=== PATIENT | male | born 1940 | race Caucasian/White ===

== ENCOUNTER → 2018-04-06 11:04 | Outpatient (CLI) | payer MEDICARE, SELFPAY ==
--- NOTE | 2018-04-06 11:22 | XR_ITS ---
XR chest 2V HISTORY: ITS.REASON: FEBRILE ILLNESS ORDERING PHYSICIAN: Vin Bradshaw PATIENT AGE: 77 years COMPARISON: 08/19/2016 FINDINGS: There has been a prior CABG. Coronary artery stent is also present. Normal heart size. No evidence of CHF. Right hemidiaphragm is slightly elevated. Lungs are clear of acute infiltrate. Degenerative changes are present in the thoracic spine. IMPRESSION: Prior CABG. No change with no acute finding
== END ==
PROVIDERS: Visit Provider Internal Medicine
DX: R50.9 Fever, unspecified (principal); J11.1 Influenza due to unidentified influenza virus with other respiratory manifestations
CPT/HCPCS: 71046; 87275; 87276

== ENCOUNTER → 2018-04-20 10:43 | Outpatient (CLI) | payer MEDICARE, SELFPAY ==
--- NOTE | 2018-04-20 10:52 | XR_ITS ---
EXAM: XR cervical spine 5V HISTORY: Neck pain ITS.REASON: NECK SHOULDER RT ARM RT CHEST PAIN ORDERING PHYSICIAN: Vin Bradshaw PATIENT AGE: 77 years COMPARISON: None FINDINGS: Degenerative disc disease is present at from C3 to C7 worse at C5-C6 and C6-C7 with endplate osteophytes. There is mild anterior subluxation of C4 on C5 of 3 mm. Facet and uncovertebral arthropathy is present with Foraminal narrowing is present on the right at C3-C4 C4-C5 and C5-C6 and on the left at C3-C4 C4-C5 and C5-C6 and C6-C7. No fracture or dislocation. No lytic or blastic change. Prominent facet arthritic changes are present from C3 to C7 incidental carotid artery calcifications noted bilaterally. IMPRESSION: 1. Cervical spondylosis with degenerative disc disease and facet and uncovertebral arthrosis with foraminal narrowing as described above 2. Carotid artery disease
--- NOTE | 2018-04-20 10:52 | XR_ITS ---
XR shoulder RT min 2V HISTORY: Right shoulder pain ITS.REASON: NECK SHOULDER RT ARM RT CHEST PAIN ORDERING PHYSICIAN: Vin Bradshaw PATIENT AGE: 77 years Comparison: None FINDINGS: No obvious fracture, dislocation, lytic, or blastic change. There is mild acromioclavicular arthropathy with subacromial stenosis. There is decrease in the acromiohumeral space with mild superior location of the humeral head. These findings may be seen with rotator cuff tears may be confirmed with MRI if clinically warranted. IMPRESSION: 1. Mild acromioclavicular arthropathy with subacromial stenosis with possible rotator cuff tear. 2. Otherwise negative right shoulder
--- NOTE | 2018-04-20 10:52 | XR_ITS ---
XR chest 2V HISTORY: ITS.REASON: NECK SHOULDER RT ARM RT CHEST PAIN ORDERING PHYSICIAN: Vin Bradshaw PATIENT AGE: 77 years COMPARISON: 04/06/2018 FINDINGS: Prior CABG. Normal heart size. No evidence of CHF. Lungs are clear bilaterally. Degenerative changes are present in the thoracic spine. IMPRESSION: No change with no acute finding
== END ==
PROVIDERS: PCP Internal Medicine; Visit Provider Internal Medicine
DX: M54.2 Cervicalgia (principal); M25.511 Pain in right shoulder; R07.89 Other chest pain; M79.641 Pain in right hand
CPT/HCPCS: 71046; 72050; 73030

== ENCOUNTER → 2019-02-09 06:50 | Outpatient (CLI) | payer MEDICARE, SELFPAY ==
--- NOTE | 2019-02-09 06:53 | CA_ITS ---
PROCEDURE: 2-D M-mode and color Doppler study INDICATIONS FOR THE TEST: Chest pain COPD Heart Murmur Tobacco Smoking Palpitations Fatigue+ Syncope+ Edema Hypertension+Diabetes Mellitus+ Rheumatic Fever SOB+REYNOLDS Obesity Hyperlipidemia+ Family History HD Additional History DIZZINESS, CABG, STENT PATIENT INFORMATION HEIGHT: 68 WEIGHT:194 GENDER: Male B/P:127/70 2-D/M-MODE INTERPRETATION: 2-D MEASUREMENTS OBSERVED VALUES IN CMS Right Ventricular Dimension (RVDd) 2.3 Interventricular Septum (Thickness)(IVsd) 1.5 Left Ventricular Internal Dimensions(LVIDd) 5.8 Left Ventricular Posterior Wall (Thickness)(LVPWd) 0.7 Aortic Root 3.8 Aortic Cusp Separation 2.0 Left Atrial Dimensions (LAD) 4.1 2D 1. Left atrium is mildly enlarged, left ventricle is normal size, mild concentric left ventricular hypertrophy, visually estimated ejection fraction 55% with no regional wall motion abnormality. 2. The right atrium and right ventricle are normal size and contractility. 3. The aortic valve is minimally thickened and fibrosed leaflet continue to display good mobility. 4. The mitral and tricuspid valve are grossly normal. 5. The pulmonic valve is poorly visualized. 6. No significant pericardial effusion noted. DOPPLER INTERROGATION: Doppler interrogation of the aortic, mitral and tricuspid valvular presence of mild mitral and tricuspid regurgitation, tricuspid regurgitation jet velocity is inadequate for calculation of the right ventricular systolic pressure, grade 1 diastolic dysfunction seen with tissue Doppler evidence of raised left atrial pressure. CONCLUSION: 1. Mildly enlarged left atrium, normal left ventricular size, mild concentric left ventricular hypertrophy, visually estimated ejection fraction 55% with no regional wall motion abnormality, grade 1 diastolic dysfunction seen with tissue Doppler evidence of raised left atrial pressure. 2. Mild mitral and tricuspid regurgitation 3. No significant pericardial effusion noted.
--- NOTE | 2019-02-09 06:58 | NM_ITS ---
CARDIOLITE SPECT MYOCARDIAL PERFUSION LEXISCAN, REST AND STRESS: [facility] REVIEW QGS EF AND WALL MOTION EVALUATION: QPS - PERFUSION EVALUATION HISTORY: CAD, SYNCOPE DOSE: 10.56 mCi technetium 99m mibi intravenously at rest followed by 31.9 mCi technetium 99m mibi following the intravenous ministration of 0.4 mg of Lexiscan. Resting blood pressure is 111/54. Stress blood pressure 98/52. FINDINGS: Ejection fraction is calculated to be 42% Stress images reveal severe left ventricular dilatation with severely reduced activity in the inferior wall moderately reduced in the anterior apical wall. Rest images reveal worsening activity in the septum and apex with persistent decrease activity in the inferior wall. Gated images calculated ejection fraction of 42% inferior wall aneurysm and akinesis with anterior apical hypokinesis. High risk stress test. IMPRESSION:
--- NOTE | 2019-02-09 06:58 | XR_ITS ---
XR chest 2V HISTORY: No history provided ITS.REASON: z ORDERING PHYSICIAN: Hans Odell MD PATIENT AGE: 78 years COMPARISON: PA and lateral chest 04/20/2018 FINDINGS: The cardiomediastinal silhouette and pulmonary vascularity are within normal limits. Sternal wire sutures and surgical clips are seen from previous CABG. The lungs are clear without infiltrates, suspicious nodules, or pleural effusions. No acute bony abnormalities. There are mild multilevel degenerative changes thoracic spine. IMPRESSION: Negative chest, no acute finding
--- NOTE | 2019-02-09 08:55 | HMH.ITSHM ---
Current Home Medications as stated by this patient Victoria Sears or ambulatory service representative. []OMEPRAZOLE METOPROLOL INSULIN GABAPENTIN FUROSEMIDE DIAZEPAM CITALOPRAM ATORVASTATIN PLAVIX ASPIRIN
[2019-02-09 10:37] LABS: Microscopic, Urine URINE MICROSCOPIC (MICROSCOPIC)
[2019-02-09 11:07] LABS: Basophils % 0.5 % (0.1-2.0); Eosinophils # 0.5 K/mm3 (0.0-0.4); Eosinophils % 8.2 % (0.1-12.0); Hematocrit 41.4 % (42.0-52.0); Lymphocytes # 1.3 K/mm3 (0.7-4.5); Lymphocytes % 20.2 % (10-50); Mean Corpuscular HGB Conc 33.8 g/dL (31.8-35.4); Mean Corpuscular Hemoglobin 29.2 pg (27.0-31.2); Mean Corpuscular Volume 86.5 fl (80-94); Mean Platelet Volume 7.5 fl (7.4-10.4); Monocytes # 0.4 K/mm3 (0.1-1.0); Monocytes % 5.6 % (1.7-9.3); Neutrophils # 4.3 K/mm3 (1.8-7.8); Neutrophils % 65.6 % (37.0-80.0); Platelet Count 161 K/mm3 (142-424); Red Blood Count 4.78 M/mm3 (4.60-6.20); Red Cell Distribution Width 14.5 % (11.5-17.5); White Blood Count 6.6 K/mm3 (4.8-10.8)
[2019-02-09 11:23] LABS: Appearance,Urine CLEAR (Clear); Bilirubin,Urine Negative (Negative); Blood, Urine Negative (Negative); Color,Urine YELLOW (Yellow); Glucose,Urine (UA) Negative (Negative); Ketones,Urine Negative (Negative); Leukocyte Esterase,Urine Negative (Negative); Nitrate,Urine Negative (Negative); Protein,Urine Negative (Negative); Specific Gravity, Urine 1.015 (1.005-1.030); Urobilinogen,Urine 0.2 EU/dl (0.2)
[2019-02-09 11:34] LABS: Bacteria,Urine Trace /lpf; Squamous Epithelial Cell,Urine Occasional #/hpf (0-5); WBC,Urine Occasional #/hpf (0-3)
[2019-02-09 11:48] LABS: Alanine Aminotransferase 22 U/L (12-78); Albumin Level 4.2 gm/dL (3.4-5.0); Alkaline Phosphatase 69 U/L (46-116); Anion Gap 15.7 mEq/L (5-15); Aspartate Amino Transferase 14 U/L (15-37); Bilirubin,Direct 0.1 mg/dL (0.0-0.2); Bilirubin,Indirect 0.4 mg/dL (0.0-0.9); Bilirubin,Total 0.5 mg/dL (0.2-1.0); Blood Urea Nitrogen 21 mg/dL (7-18); Calcium 9.5 mg/dL (8.5-10.1); Carbon Dioxide 25 mmol/L (21.0-32.0); Chloride 104 mmol/L (98-107); Creatinine,Serum 1.13 mg/dL (0.70-1.30); Estimated Glomerular Filt Rate 63 ml/min (>60); Free T4 (Free Thyroxine) 0.84 ng/dl (0.76-1.46); GFR (African American) 76 ML/MIN (>60); Glucose 158 mg/dL (74-106); Potassium 4.7 mmoL/L (3.5-5.1); Prostate Specific Ag, Diagnost 1.12 ng/mL (0.0-4.0); Sodium 140 mmol/L (136-145); Thyroid Stimulating Hormone 3.98 uIU/ml (0.358-3.740); Total Protein,Serum 7.6 gm/dL (6.4-8.2)
== END ==
PROVIDERS: PCP Internal Medicine; Visit Provider Internal Medicine
DX: R55 Syncope and collapse (principal); R07.9 Chest pain, unspecified; E78.5 Hyperlipidemia, unspecified; I11.9 Hypertensive heart disease without heart failure; I25.10 Atherosclerotic heart disease of native coronary artery without angina pectoris; I44.0 Atrioventricular block, first degree; R06.02 Shortness of breath; R42 Dizziness and giddiness; R53.83 Other fatigue; N40.0 Benign prostatic hyperplasia without lower urinary tract symptoms; R39.198 Other difficulties with micturition
CPT/HCPCS: 36415; 71046; 78452; 80048; 80076; 81001; 84153; 84439; 84443; 85025; 93017; 93306; A9502; J2785

== ENCOUNTER → 2019-02-25 11:06 | Outpatient (CLI) | payer MEDICARE, SELFPAY ==
--- NOTE | 2019-02-25 11:07 | CI_ITS ---
Cerebrovascular Exam Indications: 780.2 Syncope and collapse. 785.9 Bruit. 780.4 Dizziness and giddiness. IMPRESSIONS 1. The bilateral vertebral arteries are patent with normal antegrade flow. 2. Study suggests 20-49% stenosis involving the right internal carotid artery. 3. Study suggests 20-49% stenosis involving the left internal carotid artery. History: Coronary artery disease. Risk factors: Former smoker Hypertension. Diabetes mellitus. Hyperlipidemia. Carotid duplex study. Complete study and Doppler flow study including spectral analysis, color and muñoz scale imaging. Height: Height: 175.3cm. Height: 69in. Weight: Weight: 86.6kg. Weight: 190.6lb. Body mass index: BMI: 28.2kg/m^2. Body surface area: BSA: 2.07m^2. Location: Vascular laboratory. Patient status: Outpatient. Tables: Arterial flow: + +--------+--------+ Location V sys V ed + +--------+--------+ Right CCA - proximal 80.9cm/s 16.5cm/s + +--------+--------+ Right CCA - distal 80.2cm/s 12.7cm/s + +--------+--------+ Right ECA 62.8cm/s 9.4cm/s + +--------+--------+ Right ICA - proximal 71.5cm/s 19.4cm/s + +--------+--------+ Right ICA - distal 75.7cm/s 25.2cm/s + +--------+--------+ Right vertebral 31.4cm/s 8.7cm/s + +--------+--------+ Left CCA - proximal 71.5cm/s 17.4cm/s + +--------+--------+ Left CCA - mid 76.9cm/s 16cm/s + +--------+--------+ Left CCA - distal 63.5cm/s 18cm/s + +--------+--------+ Left ECA 85.7cm/s 13.3cm/s + +--------+--------+ Left ICA - proximal 59.5cm/s 14.7cm/s + +--------+--------+ Left ICA - mid 52.4cm/s 20.2cm/s + +--------+--------+ Left ICA - distal 63.9cm/s 23.5cm/s + +--------+--------+ Left vertebral 57.6cm/s 11.2cm/s + +--------+--------+ Velocity ratios: + + + + + + Right, V sys Right, V ed Left, V sys Left, V ed + + + + + + Max ICA/dist CCA 0.94 1.98 1.01 1.31 + + + + + + (Report amended ) Electronically signed by: Justin Alarcon [id number]
== END ==
PROVIDERS: PCP Internal Medicine; Visit Provider Nurse Practitioner Family
DX: E78.2 Mixed hyperlipidemia (principal); I11.9 Hypertensive heart disease without heart failure; I25.118 Atherosclerotic heart disease of native coronary artery with other forms of angina pectoris; I44.0 Atrioventricular block, first degree; R06.02 Shortness of breath; R09.89 Other specified symptoms and signs involving the circulatory and respiratory systems; R42 Dizziness and giddiness; R53.83 Other fatigue; R55 Syncope and collapse
CPT/HCPCS: 93880

== ENCOUNTER → 2019-09-13 08:27 | Outpatient (CLI) | payer MEDICARE, SELFPAY ==
--- NOTE | 2019-09-13 08:28 | FL_ITS ---
PROCEDURE: FL BARIUM ENEMA CLINICAL INDICATION: colon The polyps, tortuous colon on recent colonoscopy COMPARISON: No exams were available for comparison FINDINGS: Fluoroscopy time: 2 minutes and 46 seconds Left nephrolithiasis is noted with the largest stone in the lower pole at 9 mm. The colon was visualized from rectum to cecum. The appendix did fill. There is extensive diverticulosis of the descending and sigmoid colon. No annular constricting lesions or fixed polypoid filling defects are evident. No evidence of diverticulitis. No mucosal abnormalities are apparent. IMPRESSION: 1. Colonic diverticulosis. 2. Otherwise negative air-contrast barium enema 3. Left nephrolithiasis Dictated by: Armando Chavez MD 09/13/2019 16:07 Electronically signed by Armando Chavez MD in [place] 09/14/2019 10:03
== END ==
PROVIDERS: PCP Internal Medicine; Visit Provider Surgery
DX: D12.6 Benign neoplasm of colon, unspecified (principal)
CPT/HCPCS: 74270

== ENCOUNTER → 2019-11-16 13:52 | Outpatient (POV) | payer MEDICARE, SELFPAY | DX: Z00.00 Encounter for general adult medical examination without abnormal findings (principal) ==

== ENCOUNTER → 2019-12-09 11:34 | Outpatient (CLI) | payer MEDICARE, SELFPAY ==
--- NOTE | 2019-12-09 11:52 | ECG_ITS ---
APPROVED REPORT Exam: Resting ECG HR:56 bpm ECG Measurements Heart Rate 56 AXES WV 166 P 68 QRSd 104 QRS 98 QT 430 T -4 QTc 414 <Conclusion> Sinus bradycardia Rightward axis Nonspecific T wave abnormality Abnormal ECG Electronically signed by : Vin Bradshaw, 12/09/2019 15:49:05
== END ==
PROVIDERS: PCP Internal Medicine; Visit Provider Internal Medicine
DX: Z01.810 Encounter for preprocedural cardiovascular examination (principal); E11.59 Type 2 diabetes mellitus with other circulatory complications
CPT/HCPCS: 93005

== ENCOUNTER → 2020-01-04 14:07 | Outpatient (POV) | payer MEDICARE, SELFPAY | DX: Z00.00 Encounter for general adult medical examination without abnormal findings (principal) ==

== ENCOUNTER → 2020-01-09 10:58 | Outpatient (CLI) | payer MEDICARE, SELFPAY ==
--- NOTE | 2020-01-09 11:12 | XR_ITS ---
PROCEDURE: XR SHOULDER RT MIN 2V CLINICAL INDICATION: RT SHOULDER BURSITIS Right shoulder pain COMPARISON: SHOULDCMRT XR shoulder RT min 2V from 04/20/2018 FINDINGS: There are mild osteoarthritic changes of the AC joint and glenohumeral joint with subacromial stenosis. There is mild high-riding of the humeral head which may be seen with rotator cuff tear is. Overall no significant change from 04/20/2018. IMPRESSION: Osteoarthritic change with subacromial stenosis which may be seen with rotator cuff tears Dictated by: Armando Chavez MD 01/09/2020 11:26 Electronically signed by Armando Chavez MD in [place] 01/09/2020 11:26
== END ==
PROVIDERS: PCP Internal Medicine; Visit Provider Internal Medicine
DX: M75.51 Bursitis of right shoulder (principal)
CPT/HCPCS: 73030

== ENCOUNTER → 2020-02-01 14:08 | Outpatient (POV) | payer MEDICARE, SELFPAY | DX: Z00.00 Encounter for general adult medical examination without abnormal findings (principal) ==

== ENCOUNTER → 2020-02-15 14:00 | Outpatient (POV) | payer MEDICARE, SELFPAY | PROVIDERS: PCP Internal Medicine | DX: Z00.00 Encounter for general adult medical examination without abnormal findings (principal) ==

== ENCOUNTER → 2020-04-30 10:22 | Outpatient (CLI) | payer MEDICARE, SELFPAY ==
--- NOTE | 2020-04-30 10:31 | XR_ITS ---
PROCEDURE: XR CERVICAL SPINE 5V CLINICAL INDICATION: CERVICALGIA COMPARISON: [id number] XR cervical spine 5V from 04/20/2018 FINDINGS: There is grade 1 posterior listhesis at the C3-4 disc space again demonstrated. There is degenerative narrowing of the C3-C4, C5-C6, in the C6-C7 disc spaces. Multilevel facet arthropathy and bilateral neural foraminal stenosis of C3 through C7 is demonstrated. Vascular calcifications are present. There is no fracture or dislocation. IMPRESSION: Degenerative spondylosis, no fractures Note: If a subtle fracture is suspected then CT scan recommended. Dictated by: Junaid Murry 04/30/2020 10:57 Electronically signed by Junaid Murry in [place] 04/30/2020 10:57
[2020-04-30 13:38] LABS: Erythrocyte Sedimentation Rate 17 mm/hr (0-20)
== END ==
PROVIDERS: PCP Internal Medicine; Visit Provider Internal Medicine
DX: M54.2 Cervicalgia (principal)
CPT/HCPCS: 36415; 72050; 85651

== ENCOUNTER → 2020-07-11 11:06 | Outpatient (CLI) | payer MEDICARE, SELFPAY ==
--- NOTE | 2020-07-11 11:12 | XR_ITS ---
PROCEDURE: XR CHEST 2V CLINICAL HISTORY: CHEST PAIN,COPD COMPARISON: CR CXR2V XR chest 2V from 02/09/2019 FINDINGS: Prior CABG. Normal heart size. Coronary artery stent noted. The lungs are clear without infiltrates, suspicious nodules, or pleural effusions. Degenerative change thoracic spine IMPRESSION: No acute findings. Dictated by: Armando Chavez MD 07/11/2020 11:33 Armando Chavez MD in [place] 07/11/2020 11:33
--- NOTE | 2020-07-11 11:38 | ECG_ITS ---
APPROVED REPORT Exam: Resting ECG HR:60 bpm ECG Measurements Heart Rate 60 AXES OK 174 P 53 QRSd 108 QRS 62 QT 428 T 40 QTc 428 <Conclusion> Normal sinus rhythm Normal ECG Electronically signed by : Vin Bradshaw, 07/11/2020 11:57:10
== END ==
PROVIDERS: PCP Internal Medicine; Visit Provider Internal Medicine
DX: R07.9 Chest pain, unspecified (principal); J44.9 Chronic obstructive pulmonary disease, unspecified
CPT/HCPCS: 71046; 93005

== ENCOUNTER → 2021-04-05 10:35 | Outpatient (CLI) | payer MEDICARE, MEDICAID, SELFPAY ==
--- NOTE | 2021-04-05 10:41 | XR_ITS ---
PROCEDURE: XR SHOULDER RT MIN 2V CLINICAL INDICATION: RT SHOULDER PAIN,S/P INJURY COMPARISON: CR XR SHOULDER RT MIN 2V from 01/09/2020 FINDINGS: . There also is a slightly lateral downsloping acromion process and the 2 findings suggest predisposition to impingement syndrome and or possibly secondary to previous rotator cuff pathology. There is no acute fracture. There are no soft tissue calcifications. IMPRESSION: Mild degenerative changes and images suggesting previous rotator cuff pathology, no significant interval change from the previous right shoulder 01/09/2020 Dictated by: Dr. Jarred Obregon MD 04/05/2021 10:54 Dr. Jarred Obregon MD in [place] 04/05/2021 10:54
== END ==
PROVIDERS: PCP Internal Medicine; Visit Provider Internal Medicine
DX: M25.511 Pain in right shoulder (principal)
CPT/HCPCS: 73030

== ENCOUNTER → 2021-06-12 13:07 | Outpatient (POV) | payer MEDICARE, MEDICAID, SELFPAY | DX: Z00.00 Encounter for general adult medical examination without abnormal findings (principal) ==

== ENCOUNTER → 2021-07-26 10:31 | Outpatient (CLI) | payer MEDICARE, SELFPAY ==
[2021-07-26 11:37] LABS: Chloride 101 mmol/L (98-107); Potassium 4.5 mmoL/L (3.5-5.1); Sodium 138 mmol/L (136-145)
[2021-07-26 11:40] LABS: Alanine Aminotransferase 12 U/L (12-78); Albumin Level 4.4 g/dl (3.5-5.0); Albumin/Globulin Ratio 1.6 (1.1-1.8); Alkaline Phosphatase 69 U/L (38-126); Anion Gap 14.5 mEq/L (5-15); Aspartate Amino Transferase 22 U/L (17-59); Bilirubin,Total 0.8 mg/dl (0.2-1.3); Blood Urea Nitrogen 21 mg/dl (9-20); Carbon Dioxide 27 mmol/L (22.0-30.0); Estimated Glomerular Filt Rate 65 ml/min (>60); GFR (African American) 78 ML/MIN (>60); Globulin 2.8 g/dL (1.3-3.2); Total Protein,Serum 7.2 g/dl (6.3-8.2)
[2021-07-26 11:41] LABS: Calcium 9.4 mg/dl (8.4-10.2); Glucose 180 mg/dl (74-100)
[2021-07-26 11:55] LABS: T4 (Thyroxine) 6.8 ug/dl (5.53-11.0)
[2021-07-26 12:09] LABS: Thyroid Stimulating Hormone 3.65 uIU/mL (0.465-4.68)
[2021-07-26 12:15] LABS: Uric Acid 6.7 mg/dl (3.5-8.5)
== END ==
PROVIDERS: Visit Provider Internal Medicine
DX: E11.42 Type 2 diabetes mellitus with diabetic polyneuropathy (principal); E11.59 Type 2 diabetes mellitus with other circulatory complications; R00.2 Palpitations; M10.9 Gout, unspecified
CPT/HCPCS: 36415; 80053; 83036; 84436; 84443; 84550

== ENCOUNTER → 2021-08-21 10:18 | Outpatient (CLI) | payer MEDICARE, SELFPAY ==
--- NOTE | 2021-08-21 10:22 | XR_ITS ---
PROCEDURE: XR KNEE RT 3V CLINICAL INDICATION: S/P FALL ON RT KNEE, PAIN AND SWELLING COMPARISON: CR KNEE3L KNEE-3 VIEWS-LT from 09/26/2014 CR KNEE3R KNEE-3 VIEWS-RT from 03/24/2016 FINDINGS: No acute fracture or dislocation is evident. There are numerous well-circumscribed calcific densities lateral and superior to the patella. These had a similar appearance on 03/24/2016 and may be related to numerous synovial osteochondromas along with bipartite patella or an old fracture. There are tricompartmental osteoarthritic changes similar to the previous exam. There is a diagonal area of sclerosis on the oblique view in the proximal tibia centrally. There is generalized vascular calcification. IMPRESSION: 1. No acute fracture. 2. Numerous calcified loose bodies versus old fracture along with bipartite patella unchanged. 3. Osteoarthritis. Dictated by: Armando Chavez MD 08/21/2021 11:00 Armando Chavez MD in [place] 08/21/2021 11:00
== END ==
PROVIDERS: PCP Internal Medicine; Visit Provider Internal Medicine
DX: M25.561 Pain in right knee (principal); M25.461 Effusion, right knee; W19.XXXD Unspecified fall, subsequent encounter
CPT/HCPCS: 73562

== ENCOUNTER → 2021-09-03 12:51 | Outpatient (CLI) | payer MEDICARE, SELFPAY | PROVIDERS: PCP Internal Medicine; Visit Provider Nurse Practitioner | DX: Z20.822 Contact with and (suspected) exposure to COVID-19 (principal) | CPT/HCPCS: C9803; U0003; U0005 ==

== ENCOUNTER → 2021-10-25 17:09 | Outpatient (CLI) | payer MEDICARE, SELFPAY ==
[2021-10-25 17:33] LABS: Basophils % 0.8 % (0.1-2.0); Eosinophils # 0.4 K/mm3 (0.0-0.4); Eosinophils % 8.6 % (0.1-12.0); Hematocrit 39.3 % (42.0-52.0); Hemoglobin 13.8 g/dL (14.1-18.0); Lymphocytes # 1.1 K/mm3 (0.7-4.5); Mean Corpuscular HGB Conc 35.1 g/dL (31.8-35.4); Mean Corpuscular Hemoglobin 30.7 pg (27.0-31.2); Mean Corpuscular Volume 87.7 fl (80-94); Mean Platelet Volume 9.3 fl (7.4-10.4); Monocytes # 0.4 K/mm3 (0.1-1.0); Neutrophils # 3.2 K/mm3 (1.8-7.8); Neutrophils % 62.6 % (37.0-80.0); Platelet Count 202 K/mm3 (142-424); Red Blood Count 4.48 M/mm3 (4.60-6.20); Red Cell Distribution Width 13.4 % (11.5-17.5); White Blood Count 5.2 K/mm3 (4.8-10.8)
[2021-10-25 17:41] LABS: Creatinine,Urine Random 99 mg/dL (Not Estab.)
[2021-10-25 17:46] LABS: Microalbumin/Creatinine Ratio 11.6
[2021-10-25 17:57] LABS: Alanine Aminotransferase 12 U/L (12-78); Albumin Level 4.1 g/dl (3.5-5.0); Albumin/Globulin Ratio 1.5 (1.1-1.8); Alkaline Phosphatase 78 U/L (38-126); Anion Gap 11.2 mEq/L (5-15); Aspartate Amino Transferase 20 U/L (17-59); Bilirubin,Total 0.3 mg/dl (0.2-1.3); Blood Urea Nitrogen 18 mg/dl (9-20); Calcium 9.5 mg/dl (8.4-10.2); Carbon Dioxide 29 mmol/L (22.0-30.0); Chloride 100 mmol/L (98-107); Chol/HDL Ratio 5.3 (1-3.5); Cholesterol 179 mg/dl (140-200); Estimated Glomerular Filt Rate 72 ml/min (>60); GFR (African American) 87 ML/MIN (>60); Globulin 2.7 g/dL (1.3-3.2); Glucose 179 mg/dl (74-100); HDL Cholesterol 34 mg/dl (40-60); Potassium 4.2 mmoL/L (3.5-5.1); Sodium 136 mmol/L (136-145); Total Protein,Serum 6.8 g/dl (6.3-8.2); Triglycerides 222 mg/dl (30-150); Uric Acid 6.3 mg/dl (3.5-8.5); VLDL Cholesterol 44 mg/dL (0-40)
[2021-10-25 18:08] LABS: Direct LDL Cholesterol 108.04 mg/dL (100-129)
[2021-10-25 18:28] LABS: Prostate Specific Ag Screen 0.6 ng/ml (0.0-4.0)
== END ==
PROVIDERS: Visit Provider Internal Medicine
DX: I25.10 Atherosclerotic heart disease of native coronary artery without angina pectoris (principal); E11.59 Type 2 diabetes mellitus with other circulatory complications; E11.42 Type 2 diabetes mellitus with diabetic polyneuropathy; E78.5 Hyperlipidemia, unspecified; I10 Essential (primary) hypertension; M10.9 Gout, unspecified; N40.1 Benign prostatic hyperplasia with lower urinary tract symptoms; Z12.5 Encounter for screening for malignant neoplasm of prostate; Z79.4 Long term (current) use of insulin
CPT/HCPCS: 80053; 80061; 82043; 82570; 83036; 84550; 85025; G0103

== ENCOUNTER → 2021-12-10 09:56 | Outpatient (CLI) | payer MEDICARE, SELFPAY ==
[2021-12-10 11:39] LABS: Chloride 101 mmol/L (98-107); Sodium 134 mmol/L (136-145)
[2021-12-10 11:40] LABS: Potassium 4.5 mmoL/L (3.5-5.1)
[2021-12-10 11:42] LABS: Alanine Aminotransferase 12 U/L (12-78); Alkaline Phosphatase 72 U/L (38-126); Anion Gap 8.5 mEq/L (5-15); Aspartate Amino Transferase 22 U/L (17-59); Bilirubin,Total 0.8 mg/dl (0.2-1.3); Blood Urea Nitrogen 19 mg/dl (9-20); Carbon Dioxide 29 mmol/L (22.0-30.0); Cholesterol 197 mg/dl (140-200); Estimated Glomerular Filt Rate 72 ml/min (>60); GFR (African American) 87 ML/MIN (>60); Triglycerides 177 mg/dl (30-150); VLDL Cholesterol 35 mg/dL (0-40)
[2021-12-10 11:43] LABS: Albumin Level 4.5 g/dl (3.5-5.0); Albumin/Globulin Ratio 1.7 (1.1-1.8); Calcium 9.2 mg/dl (8.4-10.2); Chol/HDL Ratio 5.2 (1-3.5); Globulin 2.6 g/dL (1.3-3.2); Glucose 198 mg/dl (74-100); HDL Cholesterol 38 mg/dl (40-60); Total Protein,Serum 7.1 g/dl (6.3-8.2)
[2021-12-10 11:54] LABS: Direct LDL Cholesterol 122.26 mg/dL (100-129)
== END ==
PROVIDERS: PCP Internal Medicine; Visit Provider Internal Medicine Cardiovascular Disease
DX: E78.01 Familial hypercholesterolemia (principal)
CPT/HCPCS: 36415; 80053; 80061

== ENCOUNTER → 2022-04-28 12:25 | Outpatient (CLI) | payer MEDICARE, SELFPAY ==
[2022-04-28 14:13] LABS: Chloride 99 mmol/L (98-107); Potassium 4.9 mmoL/L (3.5-5.1); Sodium 135 mmol/L (136-145)
[2022-04-28 14:15] LABS: Alanine Aminotransferase 17 U/L (12-78); Alkaline Phosphatase 92 U/L (38-126); Aspartate Amino Transferase 27 U/L (17-59); Bilirubin,Total 0.6 mg/dl (0.2-1.3); Blood Urea Nitrogen 21 mg/dl (9-20); Estimated Glomerular Filt Rate 65 ml/min (>60); GFR (African American) 78 ML/MIN (>60)
[2022-04-28 14:16] LABS: Albumin Level 4.5 g/dl (3.5-5.0); Albumin/Globulin Ratio 1.7 (1.1-1.8); Anion Gap 11.9 mEq/L (5-15); Calcium 9.8 mg/dl (8.4-10.2); Carbon Dioxide 29 mmol/L (22.0-30.0); Chol/HDL Ratio 6.8 (1-3.5); Cholesterol 211 mg/dl (140-200); Globulin 2.7 g/dL (1.3-3.2); Glucose 244 mg/dl (74-100); HDL Cholesterol 31 mg/dl (40-60); Total Protein,Serum 7.2 g/dl (6.3-8.2); Triglycerides 454 mg/dl (30-150)
[2022-04-28 14:28] LABS: Direct LDL Cholesterol 89.12 mg/dL (100-129)
[2022-04-28 14:58] LABS: Hemoglobin A1C 8.6 % (4.0-6.0)
== END ==
PROVIDERS: PCP Internal Medicine; Visit Provider Internal Medicine
DX: S61.211A Laceration without foreign body of left index finger without damage to nail, initial encounter (principal); E11.59 Type 2 diabetes mellitus with other circulatory complications; E11.42 Type 2 diabetes mellitus with diabetic polyneuropathy; I10 Essential (primary) hypertension; B95.8 Unspecified staphylococcus as the cause of diseases classified elsewhere; Z79.4 Long term (current) use of insulin
CPT/HCPCS: 80053; 80061; 83036; 87070; 87077; 87186; 87205

== ENCOUNTER → 2022-08-19 11:05 | Outpatient (CLI) | payer MEDICARE, SELFPAY | PROVIDERS: PCP Internal Medicine; Visit Provider Family Medicine | DX: G47.33 Obstructive sleep apnea (adult) (pediatric) (principal); R40.0 Somnolence; R06.83 Snoring; I10 Essential (primary) hypertension | CPT/HCPCS: G0399 ==

== ENCOUNTER → 2022-10-28 11:44 | Outpatient (CLI) | payer MEDICARE, SELFPAY ==
[2022-10-28 12:58] LABS: Basophils # 0.1 K/mm3 (0-0.2); Eosinophils # 0.7 K/mm3 (0.0-0.4); Eosinophils % 10.5 % (0.1-12.0); Hematocrit 42.1 % (42.0-52.0); Hemoglobin 14.3 g/dL (14.1-18.0); Lymphocytes # 1.2 K/mm3 (0.7-4.5); Lymphocytes % 18.1 % (10-50); Mean Corpuscular HGB Conc 33.8 g/dL (31.8-35.4); Mean Corpuscular Hemoglobin 30.1 pg (27.0-31.2); Mean Platelet Volume 8.5 fl (7.4-10.4); Monocytes # 0.4 K/mm3 (0.1-1.0); Monocytes % 6.4 % (1.7-9.3); Neutrophils # 4.3 K/mm3 (1.8-7.8); Neutrophils % 63.9 % (37.0-80.0); Platelet Count 234 K/mm3 (142-424); Red Blood Count 4.73 M/mm3 (4.60-6.20); Red Cell Distribution Width 13.2 % (11.5-17.5); White Blood Count 6.7 K/mm3 (4.8-10.8)
[2022-10-28 13:02] LABS: Creatinine,Urine Random 109 mg/dL (Not Estab.)
[2022-10-28 13:03] LABS: Microalbumin/Creatinine Ratio 17.9
[2022-10-28 13:19] LABS: Potassium 5.1 mmoL/L (3.5-5.1)
[2022-10-28 13:20] LABS: Alanine Aminotransferase 14 U/L (12-78); Albumin Level 4.5 g/dl (3.5-5.0); Albumin/Globulin Ratio 1.6 (1.1-1.8); Alkaline Phosphatase 124 U/L (38-126); Anion Gap 12.1 mEq/L (5-15); Aspartate Amino Transferase 23 U/L (17-59); Bilirubin,Total 0.2 mg/dl (0.2-1.3); Blood Urea Nitrogen 28 mg/dl (9-20); Calcium 9.9 mg/dl (8.4-10.2); Carbon Dioxide 28 mmol/L (22.0-30.0); Chloride 102 mmol/L (98-107); Chol/HDL Ratio 7.3 (1-3.5); Cholesterol 198 mg/dl (140-200); Estimated Glomerular Filt Rate 45 ml/min (>60); GFR (African American) 54 ML/MIN (>60); Globulin 2.9 g/dL (1.3-3.2); Glucose 212 mg/dl (74-100); HDL Cholesterol 27 mg/dl (40-60); Sodium 137 mmol/L (136-145); Total Protein,Serum 7.4 g/dl (6.3-8.2)
[2022-10-28 13:23] LABS: Triglycerides 474 mg/dl (30-150)
[2022-10-28 13:31] LABS: Direct LDL Cholesterol 90.15 mg/dL (100-129)
[2022-10-28 13:41] LABS: Hemoglobin A1C 7.9 % (4.0-6.0)
== END ==
PROVIDERS: PCP Internal Medicine; Visit Provider Internal Medicine
DX: E11.59 Type 2 diabetes mellitus with other circulatory complications (principal); E11.42 Type 2 diabetes mellitus with diabetic polyneuropathy; I25.10 Atherosclerotic heart disease of native coronary artery without angina pectoris; I10 Essential (primary) hypertension; E78.5 Hyperlipidemia, unspecified; J44.9 Chronic obstructive pulmonary disease, unspecified; Z79.4 Long term (current) use of insulin
CPT/HCPCS: 80053; 80061; 82043; 82570; 83036; 85025

== ENCOUNTER → 2023-01-28 11:12 | Outpatient (CLI) | payer MEDICARE, SELFPAY ==
--- NOTE | 2023-01-28 11:18 | XR_ITS ---
FINAL REPORT CLINICAL HISTORY: FALL X 3 WEEKS AGO, LT KNEE PAIN COMPARISON: None FINDINGS: LEFT KNEE 3 views of the left knee were obtained. There is no acute fracture or dislocation. [id number] medial compartment joint space narrowing. There are osteophytes along the inner surface of the patella. 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 There are multiple surgical clips in the thigh and proximal lower leg. IMPRESSION: No acute process. Reviewed, Interpreted and Dictated by Hubert Glasgow MD Transcribed by Kelly Jaeger Authenticated and [facility]
== END ==
PROVIDERS: PCP Internal Medicine; Visit Provider Internal Medicine
DX: M25.562 Pain in left knee (principal); W19.XXXA Unspecified fall, initial encounter
CPT/HCPCS: 73562

== ENCOUNTER → 2023-02-13 12:29 | Outpatient (CLI) | payer MEDICARE, SELFPAY ==
--- NOTE | 2023-02-13 12:43 | XR_ITS ---
FINAL REPORT CLINICAL HISTORY: Acute right knee pain COMPARISON: 08/21/2021 FINDINGS: RIGHT KNEE 3 views of the right knee were obtained. There is no definite acute fracture or dislocation. There is advanced medial compartment joint space narrowing. There is subchondral sclerosis. There is fragmentation and sclerosis of the patella which may be due to sequela from old trauma. There are multiple fragments present. IMPRESSION: Degenerative change with no definite acute bony abnormality. Reviewed, Interpreted and Dictated by Hubert Glasgow MD Transcribed by Kelly Jaeger Authenticated and [facility]
== END ==
PROVIDERS: PCP Internal Medicine; Referring Provider Physician Assistant Surgical; Visit Provider Orthopaedic Surgery
DX: M25.561 Pain in right knee (principal)
CPT/HCPCS: 73562

== ENCOUNTER → 2023-04-29 12:52 | Outpatient (CLI) | payer MEDICARE, SELFPAY ==
[2023-04-29 13:57] LABS: Alanine Aminotransferase 24 U/L (12-78); Albumin Level 4.2 g/dl (3.5-5.0); Albumin/Globulin Ratio 1.6 (1.1-1.8); Alkaline Phosphatase 84 U/L (38-126); Anion Gap 14.5 mEq/L (5-15); Aspartate Amino Transferase 31 U/L (17-59); Bilirubin,Total 0.4 mg/dl (0.2-1.3); Blood Urea Nitrogen 22 mg/dl (9-20); Carbon Dioxide 27 mmol/L (22.0-30.0); Chloride 100 mmol/L (98-107); Cholesterol 204 mg/dl (140-200); Estimated Glomerular Filt Rate 53 ml/min (>60); GFR (African American) 64 ML/MIN (>60); Globulin 2.6 g/dL (1.3-3.2); Glucose 216 mg/dl (74-100); HDL Cholesterol 29 mg/dl (40-60); Potassium 4.5 mmoL/L (3.5-5.1); Sodium 137 mmol/L (136-145); Total Protein,Serum 6.8 g/dl (6.3-8.2); Triglycerides 476 mg/dl (30-150)
[2023-04-29 14:08] LABS: Direct LDL Cholesterol 79.61 mg/dL (100-129); Hemoglobin A1C 7.9 % (4.0-6.0)
== END ==
PROVIDERS: PCP Internal Medicine; Visit Provider Internal Medicine
DX: E11.59 Type 2 diabetes mellitus with other circulatory complications (principal); E11.42 Type 2 diabetes mellitus with diabetic polyneuropathy; I10 Essential (primary) hypertension; Z79.4 Long term (current) use of insulin
CPT/HCPCS: 80053; 80061; 83036

== ENCOUNTER → 2023-06-10 12:18 | Outpatient (CLI) | payer MEDICARE, SELFPAY ==
--- NOTE | 2023-06-10 12:23 | CT_ITS ---
FINAL REPORT CLINICAL HISTORY: TRAUMA FALL,NECK PAIN FINDINGS: Axial images of the head were obtained without contrast. Coronal reformatted images were also obtained.This study was performed with techniques to keep radiation doses as low as reasonably achievable (ALARA). Individualized dose reduction techniques using automated exposure control or adjustment of mA and/or kV according to the patient's size were employed. There is no evidence of intracranial hemorrhage or mass. The ventricular size is within normal limits. There is no evidence of shift of the midline structures. No abnormal extra axial fluid collection is identified. No skull abnormality is seen on the bone window images. IMPRESSION: No acute intracranial abnormality. Reviewed, Interpreted and Dictated by Lambert Norwood III, MD Transcribed by Analilia De León Authenticated and [facility]
--- NOTE | 2023-06-10 12:24 | XR_ITS ---
FINAL REPORT CLINICAL HISTORY: TRAUMA FALL,NECK PAIN FINDINGS: CERVICAL SPINE Five views demonstrate no acute fracture. There are moderate and severe degenerative changes with multilevel mild neural foraminal narrowing. There is mild anterolisthesis of C4 on 5. IMPRESSION: Multilevel degenerative changes without acute bony abnormality. Reviewed, Interpreted and Dictated by Lambert Norwood III, MD Transcribed by Analilia De León Authenticated and [facility]
== END ==
PROVIDERS: PCP Internal Medicine; Visit Provider Internal Medicine
DX: M54.2 Cervicalgia (principal); S09.90XA Unspecified injury of head, initial encounter; W19.XXXA Unspecified fall, initial encounter
CPT/HCPCS: 70450; 72050

== ENCOUNTER 2023-09-14 14:58 | Emergency (ER) | payer MEDICARE, SELFPAY ==
[2023-09-14 15:00] VITALS: BP 155/80; PULSE 60; RESP 18; O2SAT 100; BMI 60.3
--- NOTE | 2023-09-14 15:05 | ECG_ITS ---
APPROVED REPORT Exam: Resting ECG HR:60 bpm ECG Measurements Heart Rate 60 AXES [place] 177 P 54 QRSd 129 QRS 69 QT 423 T 62 QTc 424 Conclusion SINUS RHYTHM MODERATE INTRAVENTRICULAR CONDUCTION DELAY [105+ ms QRS DURATION, 80+ ms Q/S IN V1/V2, NO Q AND 60+ ms R IN I/aVL/V5/V6] NONSPECIFIC ST & T-WAVE ABNORMALITY ABNORMAL ECG UNCONFIRMED REPORT Electronically signed by : Santos Smith MD 09/14/2023 17:46:47
--- NOTE | 2023-09-14 15:15 | XR_ITS ---
FINAL REPORT CLINICAL HISTORY: Chest pain/dizziness COMPARISON: 07/11/2020 FINDINGS: 2 views of the chest were obtained . The heart is normal in size. Patient is status post median sternotomy. The mediastinum is within normal limits. The lungs are clear. There is no pneumothorax. Osseous structures are unremarkable. IMPRESSION: No acute cardiopulmonary process. Reviewed, Interpreted and Dictated by Ashly Jenkins MD Transcribed by Jessica Salmeron Authenticated and [facility]
[2023-09-14 15:24] LABS: Basophils % 0.4 % (0.1-2.0); Eosinophils # 0.5 K/mm3 (0.0-0.4); Eosinophils % 6.1 % (0.1-12.0); Hematocrit 40.9 % (42.0-52.0); Hemoglobin 14.3 g/dL (14.1-18.0); Lymphocytes # 1.1 K/mm3 (0.7-4.5); Lymphocytes % 13.1 % (10-50); Mean Corpuscular Hemoglobin 31.1 pg (27.0-31.2); Mean Corpuscular Volume 88.9 fl (80-94); Mean Platelet Volume 8.2 fl (7.4-10.4); Monocytes # 0.5 K/mm3 (0.1-1.0); Monocytes % 5.3 % (1.7-9.3); Neutrophils # 6.6 K/mm3 (1.8-7.8); Neutrophils % 75.2 % (37.0-80.0); Platelet Count 188 K/mm3 (142-424); Red Blood Count 4.61 M/mm3 (4.60-6.20); Red Cell Distribution Width 13.5 % (11.5-17.5); White Blood Count 8.7 K/mm3 (4.8-10.8)
[2023-09-14 15:30] VITALS: BP 159/82; PULSE 57; RESP 8; O2SAT 99
[2023-09-14 15:32] LABS: POC Glucose,Bedside 135 (70-110)
[2023-09-14 15:32] LABS: Anion Gap 13.5 mEq/L (5-15); Blood Urea Nitrogen 20 mg/dl (9-20); Calcium 9.6 mg/dl (8.4-10.2); Carbon Dioxide 28 mmol/L (22.0-30.0); Chloride 99 mmol/L (98-107); Creatinine Clearance Estimated 40 mL/min (50-200); Estimated Glomerular Filt Rate 49 ml/min (>60); GFR (African American) 59 ML/MIN (>60); Glucose 141 mg/dl (74-100); Potassium 4.5 mmoL/L (3.5-5.1); Sodium 136 mmol/L (136-145)
--- NOTE | 2023-09-14 15:45 | PC.NURSE ---
Dr. Gregg at [facility] for pt eval
[2023-09-14 15:47] LABS: Troponin I < 0.01 ng/ml (0.00-0.034)
[2023-09-14 16:00] VITALS: BP 159/87; PULSE 62; RESP 15; O2SAT 99
--- NOTE | 2023-09-14 16:01 | HMH.EDGENADL ---
Discharge Plan Disposition Chief Complaint: Dizziness Prescriptions Prescriptions: No Action pravastatin 80 mg tablet 80 mg PO DAILY tamsulosin 0.4 mg capsule 0.4 mg PO diazepam 2 mg tablet 2 mg PO BID furosemide 20 mg tablet 20 mg PO DAILY Tradjenta 5 mg tablet 5 mg PO DAILY buspirone 15 mg tablet 15 mg PO BID citalopram 40 mg tablet 10 mg PO DAILY losartan 25 mg tablet 25 mg PO BID metoprolol tartrate 50 mg tablet 50 mg PO BID Reji Childers U-100 Insulin 100 unit/mL (3 mL) insulin pen 30 unit SQ DAILY docusate sodium 100 mg capsule 100 mg PO QHS sodium,potassium,mag sulfates 177 ML recon soln 177 ml PO DAILY Rx Instructions: drink entire amount PM before + AM of procedure, 10-12 hr apart clopidogrel 75 MG tablet 75 mg PO DAILY aspirin 81 MG tablet,delayed release (DR/EC) 81 mg PO DAILY Referrals Follow up/Referrals: Vin Bradshaw MD [Primary Care Provider] - See instructions Discharge ED Provider: Richard Gregg General Adult HPI General Chief complaint: Dizziness Stated complaint: syncope, lightheaded Time Seen by Provider: 09/14/23 15:18 Mode of Arrival: Wheelchair Source of Information: Patient Limitations: No Limitations Description of Symptoms (Recalled from ER Triage Doc. by RN): pt presents to ED after passing out episode this date. pt states he became dizzy. pt states he held his diabetes medications this am d/t his [id number] and states it was too low for him. pt states he was going to an appointment at his PCP for his sinuses. pt states he is having intermittent chest pain. denies pain radiating. History of Present Illness HPI narrative: 83-year-old male history of hypertension, hyperlipidemia, numerous LA status post 10 vessel CABG on aspirin and Plavix presenting with dizziness. Patient states that he feels intermittently dizzy throughout the days. Patient states that he has been dealing with a sinus infection the past few days and made an appointment with his primary care doctor. Went to the doctor, he states that he was on the elevator, stepped off the elevator after it arrived up at his floor noticed feeling dizzy. Because of his heart history and feeling dizzy, primary care recommended he come to the emergency department for further evaluation. No symptoms on my evaluation. Patient denies chest pain, shortness of breath, nausea vomiting, lower extremity swelling, or any other concerns. Related Data Home Medications Medication Instructions Recorded Confirmed buspirone 15 mg tablet 15 mg PO BID mood 10/19/18 03/06/23 diazepam 2 mg tablet 2 mg PO BID Anxiety 10/19/18 03/06/23 furosemide 20 mg tablet 20 mg PO DAILY Fluid 10/19/18 03/06/23 linagliptin 5 mg tablet (Tradjenta) 5 mg PO DAILY Diabetes 10/19/18 03/06/23 aspirin 81 mg tablet,delayed 81 mg PO DAILY Heart disease 11/04/18 03/06/23 release clopidogrel 75 mg tablet 75 mg PO DAILY Blood thinner 11/04/18 03/06/23 citalopram 40 mg tablet 10 mg PO DAILY Anxiety 02/01/19 03/06/23 docusate sodium 100 mg capsule 100 mg PO QHS stool softener 02/01/19 03/06/23 insulin glargine 100 unit/mL (3 30 unit SQ DAILY Diabetes 02/01/19 03/06/23 mL) subcutaneous pen ([employer]mePen U-100 Insulin) losartan 25 mg tablet 25 mg PO BID blood pressure 02/01/19 03/06/23 metoprolol tartrate 50 mg tablet 50 mg PO BID bp 02/01/19 03/06/23 sodium,potassium,mag sulfates 17.5 177 ml PO DAILY prep 06/08/19 03/06/23 gram-3.13 gram-1.6 gram oral soln pravastatin 80 mg tablet 80 mg PO DAILY 02/13/23 03/06/23 tamsulosin 0.4 mg capsule 0.4 mg PO 02/13/23 03/06/23 Allergies Allergy/AdvReac Type Severity Reaction Status Date / Time erythromycin base Allergy Intermediate I-HIVES Verified 03/06/23 13:45 [From ERYTHROCIN] meperidine [From DEMEROL] Allergy Intermediate I-HIVES Verified 03/06/23 13:45 [facility] Disclaimer: The information contained in th
[2023-09-14 16:26] LABS: NT Pro Brain Natriuretic Pep. 576 pg/mL (0-450)
--- NOTE | 2023-09-14 16:59 | PC.NURSE ---
PT REQUESTING TO GO ON HOME , HE CANT DRIVE AFTER DARK HE IS GONNA F/U WITH DR HELLER TOMORROW . PT AND UNDERSTANDS THAT IF ANYTHING CHANGES TO COME BACK TO ER.
[2023-09-14 17:56] VITALS: BP 0/0; PULSE 0; RESP 0; TEMP -17.7; TEMP 0; O2SAT 0
== END 2023-09-14 17:59 | disposition left against medical advice (07) ==
PROVIDERS: Emergency Provider Emergency Medicine; PCP Internal Medicine
DX: R55 Syncope and collapse (principal); R42 Dizziness and giddiness; I25.10 Atherosclerotic heart disease of native coronary artery without angina pectoris; I11.9 Hypertensive heart disease without heart failure; E78.5 Hyperlipidemia, unspecified; Z95.5 Presence of coronary angioplasty implant and graft; Z79.01 Long term (current) use of anticoagulants; Z87.891 Personal history of nicotine dependence
CPT/HCPCS: 71046; 80048; 82962; 83880; 84484; 85025; 93005; 99284

== ENCOUNTER 2023-11-10 13:44 | Outpatient (CLI) | payer MEDICARE, SELFPAY ==
[2023-11-10 15:04] LABS: Basophils % 0.4 % (0.1-2.0); Eosinophils # 0.2 K/mm3 (0.0-0.4); Eosinophils % 2.3 % (0.1-12.0); Hematocrit 46.4 % (42.0-52.0); Hemoglobin 15.5 g/dL (14.1-18.0); Lymphocytes # 1.2 K/mm3 (0.7-4.5); Lymphocytes % 13.7 % (10-50); Mean Corpuscular HGB Conc 33.3 g/dL (31.8-35.4); Mean Corpuscular Hemoglobin 30.3 pg (27.0-31.2); Mean Platelet Volume 8.4 fl (7.4-10.4); Monocytes # 0.4 K/mm3 (0.1-1.0); Monocytes % 4.9 % (1.7-9.3); Neutrophils # 6.6 K/mm3 (1.8-7.8); Neutrophils % 78.7 % (37.0-80.0); Platelet Count 198 K/mm3 (142-424); Red Cell Distribution Width 13.8 % (11.5-17.5); White Blood Count 8.4 K/mm3 (4.8-10.8)
[2023-11-10 15:27] LABS: Alanine Aminotransferase 16 U/L (12-78); Albumin Level 4.4 g/dl (3.5-5.0); Albumin/Globulin Ratio 1.6 (1.1-1.8); Alkaline Phosphatase 83 U/L (38-126); Anion Gap 9.4 mEq/L (5-15); Aspartate Amino Transferase 25 U/L (17-59); Bilirubin,Total 0.4 mg/dl (0.2-1.3); Blood Urea Nitrogen 26 mg/dl (9-20); Calcium 8.6 mg/dl (8.4-10.2); Carbon Dioxide 31 mmol/L (22.0-30.0); Chloride 99 mmol/L (98-107); Chol/HDL Ratio 5.3 (1-3.5); Cholesterol 221 mg/dl (140-200); Estimated Glomerular Filt Rate 49 ml/min (>60); GFR (African American) 59 ML/MIN (>60); Globulin 2.7 g/dL (1.3-3.2); Glucose 125 mg/dl (74-100); HDL Cholesterol 42 mg/dl (40-60); Potassium 4.4 mmoL/L (3.5-5.1); Sodium 135 mmol/L (136-145); Total Protein,Serum 7.1 g/dl (6.3-8.2); Triglycerides 87 mg/dl (30-150); VLDL Cholesterol 17 mg/dL (0-40)
[2023-11-10 15:38] LABS: Direct LDL Cholesterol 139.68 mg/dL (100-129)
[2023-11-10 15:43] LABS: Creatinine,Urine Random 39 mg/dL (Not Estab.)
[2023-11-10 15:56] LABS: Prostate Specific Ag Screen 0.6 ng/ml (0.0-4.0)
[2023-11-10 17:00] LABS: Hemoglobin A1C 7.4 % (4.0-6.0)
[2023-11-10 18:53] LABS: Microalbumin < 6.000 mg/L (0-16.7)
== END 2023-11-10 23:59 ==
LOC: LAB.DROPOF 13:45
PROVIDERS: PCP Internal Medicine; Visit Provider Internal Medicine
DX: E11.59 Type 2 diabetes mellitus with other circulatory complications (principal); Z12.5 Encounter for screening for malignant neoplasm of prostate; E78.5 Hyperlipidemia, unspecified; I11.9 Hypertensive heart disease without heart failure; I25.10 Atherosclerotic heart disease of native coronary artery without angina pectoris; J44.9 Chronic obstructive pulmonary disease, unspecified; Z79.4 Long term (current) use of insulin; Z87.891 Personal history of nicotine dependence
CPT/HCPCS: 80053; 80061; 82043; 82570; 83036; 85025; G0103

== ENCOUNTER 2024-05-10 15:20 | Outpatient (CLI) | payer MEDICARE, SELFPAY ==
[2024-05-10 14:36] LABS: Basophils % 0.3 % (0.1-2.0); Eosinophils # 0.1 K/mm3 (0.0-0.4); Eosinophils % 1.6 % (0.1-12.0); Hematocrit 43.5 % (42.0-52.0); Hemoglobin 14.4 g/dL (14.1-18.0); Lymphocytes # 0.5 K/mm3 (0.7-4.5); Mean Corpuscular Hemoglobin 30.9 pg (27.0-31.2); Mean Corpuscular Volume 93.6 fl (80-94); Monocytes # 0.3 K/mm3 (0.1-1.0); Monocytes % 4.5 % (1.7-9.3); Neutrophils # 5.6 K/mm3 (1.8-7.8); Neutrophils % 86.6 % (37.0-80.0); Platelet Count 169 K/mm3 (142-424); Red Blood Count 4.65 M/mm3 (4.60-6.20); Red Cell Distribution Width 14.1 % (11.5-17.5); White Blood Count 6.5 K/mm3 (4.8-10.8)
[2024-05-10 14:40] LABS: MANUAL DIFFERENTIAL MANUAL DIFFERENTIAL (MANUAL DIFF)
[2024-05-10 15:04] LABS: Alanine Aminotransferase 12 U/L (12-78); Albumin/Globulin Ratio 1.6 (1.1-1.8); Alkaline Phosphatase 60 U/L (38-126); Anion Gap 9.7 mEq/L (5-15); Aspartate Amino Transferase 22 U/L (17-59); Blood Urea Nitrogen 31 mg/dl (9-20); Calcium 9.2 mg/dl (8.4-10.2); Carbon Dioxide 25 mmol/L (22.0-30.0); Chloride 106 mmol/L (98-107); Cholesterol 185 mg/dl (140-200); Estimated Glomerular Filt Rate 64 ml/min (>60); GFR (African American) 78 ML/MIN (>60); Globulin 2.5 g/dL (1.3-3.2); Glucose 162 mg/dl (74-100); HDL Cholesterol 31 mg/dl (40-60); Potassium 4.7 mmoL/L (3.5-5.1); Sodium 136 mmol/L (136-145); Total Protein,Serum 6.5 g/dl (6.3-8.2); Triglycerides 151 mg/dl (30-150); VLDL Cholesterol 30 mg/dL (0-40)
[2024-05-10 15:11] LABS: Eosinophils % 2 % (0-3); Lymphocytes % 7 % (10-50); Monocytes % 3 % (2-9); Neutrophils % 88 % (42-76); Platelet Estimate Normal; RBC Morphology Normal; Total Cells Counted 100
[2024-05-10 15:16] LABS: Direct LDL Cholesterol 113.72 mg/dL (100-129)
== END 2024-05-10 23:59 | disposition home or self-care (01) ==
LOC: LAB.DROPOF 15:21
PROVIDERS: PCP Internal Medicine; Visit Provider Internal Medicine
DX: I10 Essential (primary) hypertension (principal); E78.5 Hyperlipidemia, unspecified; E11.69 Type 2 diabetes mellitus with other specified complication; E11.59 Type 2 diabetes mellitus with other circulatory complications; Z79.4 Long term (current) use of insulin
CPT/HCPCS: 80053; 80061; 83036; 85007; 85025; 85027

== ENCOUNTER 2024-05-31 07:48 | Outpatient (CLI) | payer MEDICARE, SELFPAY ==
--- NOTE | 2024-05-31 07:53 | CA_ITS ---
FINAL REPORT CLINICAL HISTORY: Facial paresthesias on the left,HTN,HLD,YO,DIZZINESS FINDINGS: RIGHT CAROTID: CCA PSV -73 cm/sec ICA PSV -86 cm/sec ICA/CCA PSV ratio -1.1. Comments: Mild plaque disease is noted. LEFTCAROTID: CCA PSV -63. cm/sec ICA PSV -111. cm/sec ICA/CCA PSV ratio -1.9. Comments: Mild plaque disease is noted. Antegrade flow is seen within the vertebral arteries. IMPRESSION: Carotid stenosis classified less than 50%. Reviewed, Interpreted and Dictated by Colton Washington MD Transcribed by Sandi Abel Authenticated and [facility]
--- NOTE | 2024-05-31 08:12 | CT_ITS ---
FINAL REPORT TECHNIQUE: Noncontrast CT exam of the abdomen and pelvis. This study was performed with techniques to keep radiation doses as low as reasonably achievable (ALARA). Individualized dose reduction techniques using automated exposure control or adjustment of mA and/or kV according to the patient''s size were employed. CLINICAL HISTORY: Right lower quadrant pain, nausea FINDINGS: Abdomen: The gallbladder appears normal. Liver, spleen, pancreas and adrenal glands have a normal CT appearance in their limited unenhanced state. There is an indeterminate posterior right renal mass which appears slightly denser than a simple cyst. Lesion measures 24 mm. There is an exophytic mass in the lower pole of the right kidney measuring 32 mm. There are nonobstructing left renal stones. The largest stone in the lower pole measures 14 x 6 mm. No ureteral stones are present. There is no bowel obstruction or wall thickening. Pelvis: The appendix is normal. There is moderate sigmoid diverticulosis. The prostate is mildly enlarged. A small left inguinal hernia contains fat. IMPRESSION: No appendicitis or findings to account for the patient's right lower quadrant pain. Indeterminate right renal masses. Recommend CT follow-up using renal mass protocol. Nonobstructing left renal stones. Reviewed, Interpreted and Dictated by Colton Washington MD Transcribed by Sandi Abel Authenticated and [facility]
== END 2024-05-31 23:59 | disposition home or self-care (01) ==
LOC: RT 07:50
PROVIDERS: PCP Internal Medicine; Visit Provider Internal Medicine
DX: R20.2 Paresthesia of skin (principal); R10.31 Right lower quadrant pain; R42 Dizziness and giddiness
CPT/HCPCS: 74176; 93880

== ENCOUNTER 2024-07-13 15:18 | Outpatient (CLI) | payer MEDICARE, SELFPAY ==
--- NOTE | 2024-07-13 15:21 | XR_ITS ---
FINAL REPORT CLINICAL HISTORY: Pleurisy COMPARISON: 09/14/2023 FINDINGS: Two views of the chest were obtained. The heart size and pulmonary vascularity are within normal limits. The patient is status post median sternotomy. No acute pulmonary abnormality is identified. There is no pneumothorax. The bony thorax is intact. IMPRESSION: No active cardiopulmonary disease. Reviewed, Interpreted and Dictated by Lambert Norwood III, MD Transcribed by Karen Lu Authenticated and [facility]
== END 2024-07-13 23:59 | disposition home or self-care (01) ==
LOC: RAD 15:19
PROVIDERS: PCP Internal Medicine; Visit Provider Internal Medicine
DX: R07.9 Chest pain, unspecified (principal); R09.1 Pleurisy
CPT/HCPCS: 71046

== ENCOUNTER 2024-07-15 09:20 | Outpatient (CLI) | payer MEDICARE, SELFPAY ==
--- NOTE | 2024-07-15 09:26 | CT_ITS ---
FINAL REPORT CLINICAL HISTORY: Pleuritic right chest pain FINDINGS: Thin section axial CT images of the chest were obtained with contrast. 3D reformatted images were also obtained. This study was performed with techniques to keep radiation doses as low as reasonably achievable (ALARA). Individualized dose reduction techniques using automated exposure control or adjustment of mA and/or kV according to the patient's size were employed. There is no evidence of pulmonary embolism. There is no evidence of thoracic aortic aneurysm or dissection. There is no evidence of mediastinal or hilar mass or adenopathy. Patient is status post median sternotomy. There is diffuse wall thickening of the thoracic esophagus, favor inflammatory over neoplastic. There is a probable right thyroid lobe nodule measuring 9 mm. There is no evidence of pulmonary mass or nodule. There is mild atelectasis in the lung bases. Limited images of the upper abdomen are unremarkable. IMPRESSION: No evidence of pulmonary embolism. Wall thickening of the thoracic esophagus, favor inflammatory over neoplastic but recommend correlation with upper endoscopy. Right thyroid lobe nodule. Recommend thyroid ultrasound to further evaluate. Reviewed, Interpreted and Dictated by Lambert Norwood III, MD Transcribed by Analilia De León Authenticated and [facility]
[2024-07-15 10:02] LABS: Blood Urea Nitrogen 24 mg/dl (9-20); Estimated Glomerular Filt Rate 58 ml/min (>60); GFR (African American) 70 ML/MIN (>60)
[2024-07-15] MEDS: IOPAMIDOL-370 (76%);100ML BOTTLE 70 ML IV (10:34)
[2024-07-15] MEDS: 0.9 % SODIUM CHLORIDE 50 ML VIAL IV (10:34)
[2024-07-15] MEDS: SODIUM CHLORIDE 0.9% 10ML SYR (RAD ONLY) 10 ML IV (10:34)
== END 2024-07-15 23:59 | disposition home or self-care (01) ==
LOC: RAD 09:22
PROVIDERS: PCP Internal Medicine; Visit Provider Internal Medicine
DX: R07.9 Chest pain, unspecified (principal); R09.1 Pleurisy
CPT/HCPCS: 36415; 71275; 82565; 84520; Q9967

== ENCOUNTER 2024-08-11 14:33 | Outpatient (CLI) | payer MEDICARE, SELFPAY ==
[2024-08-11 14:29] LABS: Microalbumin/Creatinine Ratio 22.9
[2024-08-11 14:30] LABS: Creatinine,Urine Random 61 mg/dL (Not Estab.)
== END 2024-08-11 23:59 | disposition home or self-care (01) ==
LOC: LAB.DROPOF 14:34
PROVIDERS: PCP Internal Medicine; Visit Provider Internal Medicine
DX: E11.59 Type 2 diabetes mellitus with other circulatory complications (principal)
CPT/HCPCS: 82043; 82570

== ENCOUNTER 2024-09-05 09:13 | Day surgery (SDC) | payer MEDICARE, SELFPAY ==
[2024-08-30 17:17] VITALS: BMI 29.0
--- NOTE | 2024-08-31 09:38 | SUR.PREOP ---
Message left w/ Dr. Panchal's office at [facility] requesting cardiac clearance for this procedure. Message left w/ phone # and Fax.
[2024-09-05 09:40] VITALS: BP 149/89; PULSE 68; RESP 18; TEMP 36.6; O2SAT 99; BMI 29.0
[2024-09-05] MEDS: LACTATED RINGERS 1000ML 1,000 ML 25 ML IV (09:46)
--- NOTE | 2024-09-05 10:12 | P.PNANES_ITS ---
[facility] Disclaimer: The information contained in this section may have been updated after the patient was seen, as this information can be updated by other users. Medical History History of diabetes mellitus GERD (gastroesophageal reflux disease) HLD (hyperlipidemia) HHD (hypertensive heart disease) Pre-syncope Fatigue Chest pain SOB (shortness of breath) Dizziness First degree AV block CAD (coronary artery disease) Surgical History History of coronary artery bypass graft History of esophagogastroduodenoscopy (EGD) Family History Other Family history of cancer Social History Smoking Status: Former smoker alcohol intake: never substance use type: denies use current occupational status: retired Travel in the last 8 weeks: None household members: spouse housing: house caffeine: Yes [facility] Anesthesia Checklist Patient Identification Patient Identification: Arm Band Structural Data Admitted From: Home Planned Operative Procedure/s: EGD Consent for Planned Operative Procedure(s) Verified: Yes Verified Documents: Surgical Consent and History and Physical NPO Status Verified Time NPO: 00:00 Additional verifications Anesthesia Reactions: No Hx Blood Transfusions: No Blood Transfusion Reaction: No Airway Assessment Mallampati Score:: Class III C-Spine Mobility Assessed: Yes TMJ Mobility Assessed: Yes Dentition: Dentures-poor fitting (Removed) Neurological Assessment Level of Consciousness: Awake Hx Seizures: No Numbness or tingling in extremities: No Anesthesia Plan Anesthesia Risk discussed: Yes Anesthesia Plan: Verified ASA Class: III Anesthesia Type: MAC
[2024-09-05 10:34] VITALS: O2SAT 99
--- NOTE | 2024-09-05 10:38 | EXP.HP ---
History of Present Illness *Admission Date: 09/05/24 *Reason for visit:: Dysphagia/heartburn *History of present illness: Mr. Sears is an 84-year-old gentleman who is here for dysphagia and heartburn/reflux and bloating.. The examination is deemed medically necessary for EGD. The patient has been seen, interviewed and examined prior to the procedure by both myself and the anesthesia provider. [facility] Disclaimer: The information contained in this section may have been updated after the patient was seen, as this information can be updated by other users. Medical History History of diabetes mellitus GERD (gastroesophageal reflux disease) HLD (hyperlipidemia) HHD (hypertensive heart disease) Pre-syncope Fatigue Chest pain SOB (shortness of breath) Dizziness First degree AV block CAD (coronary artery disease) Surgical History History of coronary artery bypass graft History of esophagogastroduodenoscopy (EGD) Family History Other Family history of cancer Social History Smoking Status: Former smoker alcohol intake: never substance use type: denies use current occupational status: retired Travel in the last 8 weeks: None household members: spouse housing: house caffeine: Yes Other Medical History Have you received the Flu Vaccine for this season: No (NA) Have you received the Pneumonia Vaccine: Yes Review of Systems Review of Systems Review of systems (narrative): Negative *Cardiovascular Comments: Negative *Gastrointestinal Comments: Negative *Genitourinary Comments: Negative *Musculoskeletal Comments: Negative *Neurologic Comments: Negative Meds Home Medications and Allergies Home Medications ?Medication ?Instructions ?Recorded ?Confirmed ?Type pravastatin 80 mg tablet 80 mg PO DAILY 02/13/23 08/30/24 History insulin glargine 100 unit/mL (3 25 unit SQ DAILY Diabetes 05/10/24 08/30/24 History mL) subcutaneous pen (Basaglar KwikPen U-100 Insulin) blood-glucose meter (True Metrix #1 kit 05/11/24 08/30/24 Rx Air Glucose Meter) cholecalciferol (vitamin D3) 50 50 mcg PO DAILY #90 caps 05/11/24 08/30/24 Rx mcg (2,000 unit) capsule diazepam 2 mg tablet 2 mg PO BID PRN Anxiety #60 tabs 05/11/24 08/30/24 Rx linagliptin 5 mg tablet (Tradjenta) 5 mg PO DAILY #90 tabs 05/11/24 08/30/24 Rx buspirone 15 mg tablet See Rx Instructions .Route 05/19/24 08/30/24 Rx .COMPLEX #182 tabs escitalopram oxalate 20 mg tablet 10 mg (1/2 x 20 mg) PO DAILY #46 05/19/24 08/30/24 Rx tabs furosemide 20 mg tablet See Rx Instructions .Route 05/19/24 08/30/24 Rx .COMPLEX #91 tabs losartan 25 mg tablet 25 mg PO BID #182 tabs 05/19/24 08/30/24 Rx metoprolol tartrate 50 mg tablet See Rx Instructions .Route 05/19/24 08/30/24 Rx .COMPLEX #182 tabs tamsulosin 0.4 mg capsule See Rx Instructions .Route 05/19/24 08/30/24 Rx .COMPLEX #91 caps clopidogrel 75 mg tablet See Rx Instructions .Route 06/22/24 08/30/24 Rx .COMPLEX #90 tabs icosapent ethyl 1 gram capsule 2 g (2 x 1 gram) PO BID #360 caps 06/27/24 08/30/24 Rx (Vascepa) trazodone 50 mg tablet 50 mg PO HS #30 tabs 07/13/24 08/30/24 Rx sildenafil 50 mg tablet 50 mg PO DAILY PRN sexual activity 08/01/24 08/30/24 Rx #7 tabs pantoprazole 40 mg tablet,delayed 40 mg PO DAILY 08/17/24 08/30/24 History release New Prescriptions to Start Prescriptions: Allergies Allergy/AdvReac Type Severity Reaction Status Date / Time erythromycin base Allergy Intermediate I-HIVES Verified 09/05/24 09:36 [From ERYTHROCIN] meperidine [From DEMEROL] Allergy Intermediate I-HIVES Verified 09/05/24 09:36 Exam Data for Last 24 hours Vital signs and Labs for Last 24 Hours: Temp Pulse Resp BP Pulse Ox O2 Del Method 97.8 F 68 18 149/89 H 99 Room Air 09/05/24 09:40 09/05/24 09:40 09/05/24 09:40 09/05/24 09:40 09/05/24 09:40 09/05/24 09:40 I & O for Last 24 hours: Intake & Output 09/02/24 09/03/24 09/04/24 09/05/24 23:59 23:59 23:59 23:59 Weight 185 lb *Routine HEENT Exam Head: Present normocephalic Eye: Present EOMI and PERRL ENT: Present mucous membranes moist *Routine Neck Exam Neck: Present supple *Routine Respiratory Exam Respiratory: Present CTA bilaterally *Routine Cardiovascular Exam Cardiovascular: Present RRR *Routine Abdominal Exam Abdominal: Present soft and normoactive bowel sounds; Absent tenderness *Routine Rectal Exam Rectal:: deferred *Routine Genitalia Exam Genitalia:: deferred *Routine Extremities Exam Extremities: Absent cyanosis, clubbing or edema *Routine Skin Exam Skin: Present warm; Absent rash *Routine Neurological Exam Neurological: Present alert and oriented X3 Assessment and Plan *Assessment and plan (1) Dysphagia: Status: Chronic Qualifiers: Dysphagia type: unspecified Qualified Code(s): R13.10 - Dysphagia, unspecified Category: Medical Code(s): R13.10 - Dysphagia, unspecified (2) Acid reflux: Status: Acute Category: Medical Code(s): K21.9 - Gastro-esophageal reflux disease without esophagitis (3) Heartburn: Status: Acute Category: Medical Code(s): R12 - Heartburn (4) Bloating: Status: Acute Category: Medical Code(s): R14.0 - Abdominal distension (gaseous) Plan A/P: 1. Dysphagia/reflux is the preprocedural diagnosis. The patient will be anesthetized/sedated using MAC sedation. The patient has been seen and examined. Cardiac and lung assessment prior to the examination is stable. Proceed with planned EGD
--- NOTE | 2024-09-05 10:40 | P.PCN_ITS ---
[facility] Procedure Note Date: 09/05/24 Procedure Note:: Upper Endoscopy Procedure Report: Esophagogastroduodenoscopy with cold biopsies and TTS balloon dilation Endoscopost: Francisco Mata II, MD Referring Physician: Vin Bradshaw MD Date of Procedure: September 05, 2024 Equipment: Olympus GIF 190 standard upper endoscope Sedation: MAC sedation Indications: Mr. Sears is an 84-year-old gentleman with GERD and dysphagia. He has had several esophageal dilations in the past. This dysphagia has worsened over the last 3 to 4 months. He does take pantoprazole daily and is getting daily breakthrough heartburn and reflux. He does report a lot of bloating and gassiness with some regurgitation and belching. His last EGD was with me in December 2018. He did have clinical improvement after dilation. His last colonoscopy was June 2019 and he had several adenomatous colon polyps removed (Tye Thacker M.D). Procedure: Prior to the procedure, a history and physical exam was performed, and patient's medications and allergies were reviewed. The risks, benefits and alternatives of the sedation and procedure were discussed with the patient. All questions were answered and informed consent was obtained. The patient was brought to the procedure room. Patient identification and proposed procedure were verified by the physician and the nurse. The patient was placed in a left lateral decubitus position and the scope was passed under direct vision. Throughout the procedure, the patient's blood pressure, pulse, and oxygen saturations were monitored continuously. The upper GI endoscopy was accomplished without difficulty. The patient tolerated the procedure well. Findings: The scope was passed directly into the upper esophagus and advanced to the third portion of the duodenum. The post bulbar duodenum and duodenal bulb were normal with normal mucosa and conniventes. The scope was withdrawn through a normal duodenal bulb and pylorus into the stomach. There was linear erythema of the antrum and proximal body consistent with linear reactive gastropathy. There was mild chronic gastritis of the body and fundus. Biopsies were taken along the lesser curvature to rule out H. pylori. Upon retroflexion there was no hiatal hernia. The scope was then withdrawn into the esophagus. There was no evidence of reflux esophagitis or Garcia's. There was no evidence of any corrugation or stricturing. There was no evidence of any whitish plaques or Tiana. There was marked tertiary contractions and evidence of marked esophageal dysmotility. The entire esophagus was dilated to 60 Iranian/20 mm with a TTS hydrostatic balloon. There was minimal resistance. The remainder of the esophageal mucosa was normal. Impression: 1. Marked esophageal dysmotility with nonerosive GERD 2. Moderate linear reactive gastropathy and mild chronic gastritis Plan: The patient does have esophageal dysmotility which is the primary cause of his dysphagia. We discussed treatment as gas driven reflux. I will follow-up the biopsies.
[2024-09-05 10:54] VITALS: BP 108/67; PULSE 71; RESP 16; TEMP 36.2; O2SAT 92
[2024-09-05 11:04] VITALS: BP 110/61; PULSE 66; RESP 16; O2SAT 96
[2024-09-05 11:12] VITALS: BP 103/62; PULSE 60; RESP 16; O2SAT 96
[2024-09-05 11:24] VITALS: BP 114/58; PULSE 64; RESP 16; O2SAT 98
[2024-09-06 06:20] LABS: POC Glucose,Bedside 159 (70-110)
== END 2024-09-05 11:29 | disposition home or self-care (01) ==
PROVIDERS: PCP Internal Medicine; Visit Provider Internal Medicine Gastroenterology
PROC: 0DJ08ZZ Inspection of Upper Intestinal Tract, Via Natural or Artificial Opening Endoscopic (ICD-10-PCS; CPT 43235; principal; 2024-09-05 10:30)
DX: R13.10 Dysphagia, unspecified (principal); K21.9 Gastro-esophageal reflux disease without esophagitis; R12 Heartburn; R14.0 Abdominal distension (gaseous); K22.4 Dyskinesia of esophagus; K31.9 Disease of stomach and duodenum, unspecified; K29.70 Gastritis, unspecified, without bleeding; E11.8 Type 2 diabetes mellitus with unspecified complications; Z79.4 Long term (current) use of insulin
CPT/HCPCS: 43239; 43249; 82962; C1726; J7120

== ENCOUNTER 2024-09-27 15:14 | Outpatient (CLI) | payer MEDICARE, SELFPAY ==
[2024-09-27 15:21] LABS: Basophils % 0.6 % (0.1-2.0); Eosinophils # 0.4 K/mm3 (0.0-0.4); Eosinophils % 7.2 % (0.1-12.0); Hematocrit 39.4 % (42.0-52.0); Hemoglobin 13.4 g/dL (14.1-18.0); Lymphocytes % 17.5 % (10-50); Mean Corpuscular HGB Conc 34.1 g/dL (31.8-35.4); Mean Corpuscular Hemoglobin 31.1 pg (27.0-31.2); Mean Corpuscular Volume 91.2 fl (80-94); Mean Platelet Volume 8.3 fl (7.4-10.4); Monocytes # 0.4 K/mm3 (0.1-1.0); Monocytes % 6.5 % (1.7-9.3); Neutrophils # 3.9 K/mm3 (1.8-7.8); Neutrophils % 68.2 % (37.0-80.0); Platelet Count 196 K/mm3 (142-424); Red Blood Count 4.32 M/mm3 (4.60-6.20); Red Cell Distribution Width 13.9 % (11.5-17.5); White Blood Count 5.7 K/mm3 (4.8-10.8)
[2024-09-27 15:41] LABS: Alanine Aminotransferase 11 U/L (12-78); Albumin Level 4.1 g/dl (3.5-5.0); Albumin/Globulin Ratio 1.7 (1.1-1.8); Alkaline Phosphatase 79 U/L (38-126); Anion Gap 13.3 mEq/L (5-15); Aspartate Amino Transferase 20 U/L (17-59); Bilirubin,Total 0.6 mg/dl (0.2-1.3); Blood Urea Nitrogen 28 mg/dl (9-20); Calcium 9.2 mg/dl (8.4-10.2); Carbon Dioxide 26 mmol/L (22.0-30.0); Chloride 102 mmol/L (98-107); Estimated Glomerular Filt Rate 72 ml/min (>60); GFR (African American) 87 ML/MIN (>60); Globulin 2.4 g/dL (1.3-3.2); Glucose 167 mg/dl (74-100); Potassium 4.3 mmoL/L (3.5-5.1); Sodium 137 mmol/L (136-145); Total Protein,Serum 6.5 g/dl (6.3-8.2)
[2024-09-27 16:10] LABS: Erythrocyte Sedimentation Rate 11 mm/hr (0-20)
[2024-09-27 16:11] LABS: Thyroid Stimulating Hormone 5.71 uIU/mL (0.465-4.68)
[2024-09-27 16:30] LABS: Vitamin B12 462 pg/mL (239-931)
== END 2024-09-27 23:59 | disposition home or self-care (01) ==
LOC: LAB.DROPOF 15:14
PROVIDERS: PCP Internal Medicine; Visit Provider Internal Medicine
DX: I10 Essential (primary) hypertension (principal); R41.0 Disorientation, unspecified; E11.59 Type 2 diabetes mellitus with other circulatory complications; Z79.899 Other long term (current) drug therapy
CPT/HCPCS: 80053; 82607; 84443; 85025; 85651

== ENCOUNTER 2024-10-03 08:01 | Outpatient (CLI) | payer MEDICARE, SELFPAY | END 2024-10-03 23:59 | disposition home or self-care (01) | LOC: RAD 08:01 | PROVIDERS: PCP Internal Medicine; Visit Provider Internal Medicine | DX: R41.0 Disorientation, unspecified (principal) ==

== ENCOUNTER 2024-12-12 14:05 | Outpatient (CLI) | payer MEDICARE, SELFPAY ==
[2024-12-12 14:16] LABS: Alanine Aminotransferase 16 U/L (12-78); Albumin Level 4.2 g/dl (3.5-5.0); Albumin/Globulin Ratio 1.8 (1.1-1.8); Alkaline Phosphatase 71 U/L (38-126); Anion Gap 14.6 mEq/L (5-15); Aspartate Amino Transferase 25 U/L (17-59); Bilirubin,Total 0.3 mg/dl (0.2-1.3); Blood Urea Nitrogen 29 mg/dl (9-20); Calcium 9.4 mg/dl (8.4-10.2); Carbon Dioxide 29 mmol/L (22.0-30.0); Chloride 98 mmol/L (98-107); Chol/HDL Ratio 6.2 (1-3.5); Cholesterol 180 mg/dl (140-200); Estimated Glomerular Filt Rate 58 ml/min (>60); GFR (African American) 70 ML/MIN (>60); Globulin 2.3 g/dL (1.3-3.2); Glucose 173 mg/dl (74-100); HDL Cholesterol 29 mg/dl (40-60); Potassium 4.6 mmoL/L (3.5-5.1); Sodium 137 mmol/L (136-145); Total Protein,Serum 6.5 g/dl (6.3-8.2); Triglycerides 212 mg/dl (30-150); VLDL Cholesterol 42 mg/dL (0-40)
[2024-12-12 14:26] LABS: Direct LDL Cholesterol 98.89 mg/dL (100-129)
[2024-12-12 14:46] LABS: Prostate Specific Ag Screen 0.7 ng/ml (0.0-4.0)
[2024-12-12 17:35] LABS: Hemoglobin A1C 7.6 % (4.0-6.0)
== END 2024-12-12 23:59 | disposition home or self-care (01) ==
LOC: LAB.DROPOF 14:06
PROVIDERS: PCP Internal Medicine; Visit Provider Internal Medicine
DX: I10 Essential (primary) hypertension (principal); E11.42 Type 2 diabetes mellitus with diabetic polyneuropathy; E11.59 Type 2 diabetes mellitus with other circulatory complications; I25.118 Atherosclerotic heart disease of native coronary artery with other forms of angina pectoris; E78.2 Mixed hyperlipidemia; Z12.5 Encounter for screening for malignant neoplasm of prostate
CPT/HCPCS: 80053; 80061; 83036; G0103